=== PATIENT | female | born 1980 | race Caucasian/White ===

== ENCOUNTER 2022-05-11 21:08 | Emergency (ER) | payer OTHER, SELFPAY ==
[2022-05-11 21:12] VITALS: BP 156/98; PULSE 60; RESP 16; TEMP 36.4; O2SAT 99
--- NOTE | 2022-05-11 21:14 | ED.EYEPROB ---
HPI - Eye Problem General Chief complaint: Eye Problems Stated complaint: eye Time Seen by Provider: 05/11/22 21:10 History of Present Illness HPI Narrative: 41-year-old female history of seasonal allergies and depression presents to the emergency room for evaluation of left eye redness and associated pruritus. Patient states the eye became erythematous and pruritic earlier today. Denies any injury or trauma. Denies any vision changes or loss. Related Data Allergies Allergy/AdvReac Type Severity Reaction Status Date / Time cefaclor Allergy Unknown Rash Verified 06/06/21 16:35 Sulfa (Sulfonamide Allergy Unknown Rash Verified 06/06/21 16:35 Antibiotics) Review of Systems Review of Systems: CONSTITUTIONAL: Denies fever, chills, or sweats. EYES: Reports left eye irritation ENT: Denies rhinorrhea, congestion, sore throat, or otalgia. CARDIOVASCULAR: Denies chest pain, palpitations, or edema. RESPIRATORY: Denies cough or dyspnea. GASTROINTESTINAL: Denies abdominal pain, nausea, vomiting, or diarrhea. GENITOURINARY: Denies dysuria or hematuria. SKIN: Denies rash or itching. MUSCULOSKELETAL: Denies back pain, joint pain, or myalgia. NEUROLOGIC: Denies headache, numbness, dizziness, or weakness. PSYCHIATRIC: Denies anxiety or depression. [facility] Past Medical History Medical History (Updated 05/11/22 @ 21:33 by Hernan Garcia APRN) Abdominal pain Anxiety BMI 27.0-27.9,adult BMI 28.0-28.9,adult BMI 29.0-29.9,adult Headache disorder, condition Leukocytes in urine Lumbar spondylolysis Screening for lipid disorders Family History Family History Father Hypertension Grandparent Family history of Alzheimer's disease Mother Family history of malignant neoplasm of breast in first degree relative Social History Social History Alcohol intake: never Substance use: never Substance use type: does not use Additional living arrangements comments: 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 HEAD: Normocephalic, atraumatic. EYES: Left eye: Erythematous with chemosis and cobblestoning. No discharge noted. CHEST: Clear to auscultation. No respiratory distress. No wheezes rales or rhonchi. HEART: Regular rate and rhythm. No murmur heard. Normal peripheral pulses. EXTREMITIES: Normal range of motion. No edema. No clubbing or cyanosis SKIN: Warm, dry, no rash. No noted wounds NEURO: No focal deficits. Alert and oriented x3. MAEW. CN's II-XI intact bilaterally, normal gait PSYCH: Cooperative. Normal mood and affect. Course Vital Signs Vital signs: Vital Signs Temperature 36.4 C L 05/11/22 21:12 Pulse Rate 60 05/11/22 21:12 Respiratory Rate 16 05/11/22 21:12 Blood Pressure 156/98 H 05/11/22 21:12 Pulse Oximetry 99 05/11/22 21:12 Oxygen Delivery Room Air 05/11/22 21:12 Temperature 36.4 C L 05/11/22 21:12 Pulse Rate 60 05/11/22 21:12 Respiratory Rate 16 05/11/22 21:12 Blood Pressure 156/98 H 05/11/22 21:12 Pulse Oximetry 99 05/11/22 21:12 Oxygen Delivery Room Air 05/11/22 21:12 Discharge Plan Discharge Clinical Impression: Acute allergic conjunctivitis Patient Disposition: Home, Self-Care Condition: Stable Instructions: Antibiotic Form Additional Instructions: Recommend taking Benadryl for the itching. Follow-up with ophthalmology as needed. Prescriptions: New Allergy Eye (naphazoline-phen) 0.025-0.3 % drops 2 drp LEFT EYE QID PRN (Reason: allergy symptoms) Qty: 15 0RF No Action citalopram 40
== END 2022-05-11 21:45 | disposition home or self-care (01) ==
LOC: ANHED 21:33
PROVIDERS: Emergency Provider Nurse Practitioner Family; PCP Family Medicine
DX: H10.12 Acute atopic conjunctivitis, left eye (principal)
CPT/HCPCS: 99283

== ENCOUNTER → 2022-08-09 16:06 | Outpatient (CLI) | payer OTHER, SELFPAY ==
--- NOTE | ~2022-08-09 | XR_ITS ---
AP and oblique views of the bilateral ribs, and PA and lateral chest radiographs Clinical History: Pain Findings: No rib fracture is seen. Dextroscoliosis of the thoracic spine noted. Lungs are clear, with out focal consolidation or pleural effusion. Cardiomediastinal contour is within normal limits. Soft tissues are unremarkable. Impression: No rib fracture is seen. Clear lungs. Reviewed, dictated and finalized at location . Impression: No rib fracture is seen. Clear lungs.
== END ==
PROVIDERS: PCP Family Medicine; Visit Provider Nurse Practitioner Family
DX: R05.3 Chronic cough (principal)
CPT/HCPCS: 71046; 71110

== ENCOUNTER 2022-10-18 09:02 | Outpatient (CLI) | payer OTHER, SELFPAY ==
[2022-10-18 09:55] LABS: Amylase 71 U/L (30-110); Lipase 66 U/L (23-300)
== END 2022-10-18 09:03 | disposition home or self-care (01) ==
LOC: ANHLAB 09:03
PROVIDERS: PCP Family Medicine; Visit Provider Family Medicine
DX: R10.32 Left lower quadrant pain (principal)
CPT/HCPCS: 36415; 82150; 83690

== ENCOUNTER 2023-03-26 16:16 | Outpatient (CLI) | payer OTHER, SELFPAY ==
[2023-03-26 17:03] LABS: Hematocrit 37.4 % (37.0-47.0); Hemoglobin 11.9 g/dL (12.0-15.0); Mean Corpuscular HGB Conc 31.8 g/dl (32-36); Mean Corpuscular Hemoglobin 29.8 pg (26-34); Mean Corpuscular Volume 93.5 fl (80-100); Mean Platelet Volume 9.5 fl (7.4-10.4); Platelet Count Result 303 k/mm3 (150-375); Red Cell Distribution Width 11.8 % (11.5-14.5); White Blood Count 7.7 K/mm3 (4.5-10.0)
[2023-03-26 17:24] LABS: Alanine Aminotransferase 17 U/L (6-35); Albumin Level 4.5 g/dL (3.5-5.1); Alkaline Phosphatase 70 U/L (38-126); Anion Gap 5 mmol/L (8-16); Aspartate Amino Transferase 23 U/L (14-36); Bilirubin,Total 0.7 mg/dL (0.2-1.3); Blood Urea Nitrogen 12 mg/dL (7-17); Calcium 9.4 mg/dL (8.4-10.2); Carbon Dioxide 30 mmol/L (22-30); Chloride 101 mmol/L (98-107); Estimated Glomerular Filt Rate > 60; Glucose 93 mg/dL (65-110); Potassium 3.7 mmol/L (3.4-5.0); Sodium 136 mmol/L (137-145)
== END 2023-03-26 16:17 | disposition home or self-care (01) ==
LOC: ANHLAB 16:18
PROVIDERS: PCP Family Medicine; Visit Provider Family Medicine
DX: F41.9 Anxiety disorder, unspecified (principal); R10.30 Lower abdominal pain, unspecified; Z13.1 Encounter for screening for diabetes mellitus; R82.998 Other abnormal findings in urine
CPT/HCPCS: 36415; 80048; 80076; 84443; 85027

== ENCOUNTER 2023-04-03 15:09 | Outpatient (CLI) | payer OTHER, SELFPAY ==
--- NOTE | ~2023-04-03 | CT_ITS ---
CT of the Abdomen and Pelvis: Indication: Abdominal pain Technique: 2.5 mm axial scans were obtained through the abdomen and pelvis following intravenous adm inistration of 100 cc of Omnipaque 350. Dose reduction technique was used on this scan by utilizing a utomated exposure control and iterative reconstruction technique. The dose-length product (DLP) was 8 08.66 mGy-cm. Findings: Scans through the lung bases are unremarkable. The liver, spleen, pancreas, gallbladder, adrenals and kidneys are within normal limits. No evidence of aortic aneurysm. No lymphadenopathy. No bowel obstruction or bowel wall thickening. There is no evidence to suggest acute appendicitis. Sm all fat-containing umbilical hernia noted. Images through the pelvis were performed. Urinary bladder unremarkable. No significant adnexal mass s een. No ascites. Impression: Small fat-containing umbilical hernia, otherwise unremarkable exam. Reviewed, dictated and finalized at [facility]. NT ACQUISITION LEAD Impression: Small fat-containing umbilical hernia, otherwise unremarkable exam.
== END 2023-04-03 15:10 | disposition home or self-care (01) ==
PROVIDERS: PCP Family Medicine; Visit Provider Family Medicine
DX: K42.9 Umbilical hernia without obstruction or gangrene (principal)
CPT/HCPCS: 74177; Q9967

== ENCOUNTER 2023-07-03 08:23 | Outpatient (CLI) | payer OTHER, SELFPAY ==
[2023-07-03 09:14] LABS: Hematocrit 36.9 % (37.0-47.0); Hemoglobin 11.8 g/dL (12.0-15.0); Mean Corpuscular Hemoglobin 29.9 pg (26-34); Mean Corpuscular Volume 93.7 fl (80-100); Mean Platelet Volume 10.1 fl (7.4-10.4); Platelet Count Result 280 k/mm3 (150-375); Red Blood Count 3.94 M/mm3 (4.2-5.4); Red Cell Distribution Width 11.7 % (11.5-14.5); White Blood Count 4.2 K/mm3 (4.5-10.0)
[2023-07-03 09:33] LABS: Alanine Aminotransferase 14 U/L (6-35); Albumin Level 3.7 g/dL (3.5-5.1); Alkaline Phosphatase 50 U/L (38-126); Anion Gap 5 mmol/L (8-16); Aspartate Amino Transferase 22 U/L (14-36); Bilirubin,Total 0.3 mg/dL (0.2-1.3); Blood Urea Nitrogen 12 mg/dL (7-17); Calcium 8.9 mg/dL (8.4-10.2); Carbon Dioxide 26 mmol/L (22-30); Chloride 110 mmol/L (98-107); Estimated Glomerular Filt Rate > 60; Glucose 108 mg/dL (65-110); Sodium 141 mmol/L (137-145)
== END 2023-07-03 08:24 | disposition home or self-care (01) ==
LOC: ANHIMG 08:27
PROVIDERS: PCP Family Medicine; Visit Provider Nurse Practitioner Family
DX: F41.9 Anxiety disorder, unspecified (principal); R10.30 Lower abdominal pain, unspecified
CPT/HCPCS: 36415; 80053; 84443; 85027

== ENCOUNTER 2023-07-06 08:20 | Outpatient (CLI) | payer OTHER, SELFPAY ==
[2023-07-06 08:47] LABS: Anion Gap 6 mmol/L (8-16); Blood Urea Nitrogen 14 mg/dL (7-17); Calcium 9.2 mg/dL (8.4-10.2); Carbon Dioxide 28 mmol/L (22-30); Chloride 107 mmol/L (98-107); Estimated Glomerular Filt Rate > 60; Glucose 110 mg/dL (65-110); Potassium 4.2 mmol/L (3.4-5.0); Sodium 141 mmol/L (137-145)
[2023-07-06 09:06] LABS: Iron 68 ug/dL (37-170)
[2023-07-06 09:17] LABS: Percent Iron Saturation 24 % (20-50)
[2023-07-06 09:54] LABS: Folic Acid 6.4 ng/mL (2.76->20)
== END 2023-07-06 08:21 | disposition home or self-care (01) ==
LOC: ANHLAB 08:22
PROVIDERS: PCP Family Medicine; Visit Provider Nurse Practitioner Family
DX: N28.9 Disorder of kidney and ureter, unspecified (principal); D64.9 Anemia, unspecified
CPT/HCPCS: 36415; 80048; 82607; 82746; 83540; 83550

== ENCOUNTER 2023-07-09 14:09 | Emergency (ER) | payer OTHER, SELFPAY ==
--- NOTE | 2023-07-09 14:18 | ED.URI ---
HPI - URI/Sore Throat General Chief Complaint: Upper Respiratory Infection Stated Complaint: headache,sore throat Time Seen by Provider: 07/09/23 14:40 Source: patient and RN notes reviewed Mode of arrival: ambulatory Limitations: no limitations History of Present Illness HPI Narrative: 42-year-old female presents with concern for nasal congestion, rhinorrhea, headaches, sore throat for 4 days. Reports she has been taking Claritin-D, DayQuil NyQuil without relief. She reports body aches and fatigue, denies fever. 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 Reports fatigue EYES: Denies visual changes, redness, or discharge. ENT: Reports rhinorrhea, congestion, otalgia and sore throat. CARDIOVASCULAR: Denies chest pain, palpitations, or edema. RESPIRATORY: Reports cough. Denies dyspnea. GASTROINTESTINAL: Denies abdominal pain, nausea, vomiting, diarrhea SKIN: Denies rash or itching. MUSCULOSKELETAL: Reports myalgia. NEUROLOGIC: Reports headache. All systems reviewed & are unremarkable except as noted in HPI and below PMFSH Past Medical History Medical History Abdominal pain Anxiety BMI 27.0-27.9,adult BMI 28.0-28.9,adult BMI 29.0-29.9,adult BMI 30.0-30.9,adult Headache disorder, condition Left upper quadrant abdominal pain Leukocytes in urine Lower abdominal pain Lumbar spondylolysis Medial epicondylitis of right elbow Obesity, Class I, BMI 30-34.9 Screening for lipid disorders Surgical History Surgical History H/O nasal septoplasty Family History Family History Father Hypertension Heart disease Grandparent Family history of Alzheimer's disease Mother Family history of malignant neoplasm of breast in first degree relative Breast cancer Osteopenia Sibling Depression Other Anxiety Malignant neoplasm of prostate Social History Social History Smoking status: Never smoker Second hand tobacco smoke exposure: No Alcohol intake: current Alcohol use details: rarely Substance use: never Substance use type: does not use Lack of Transportation: No Lack of Food: Never True Current Housing: I Have Housing Concerned About Future Housing: No Difficulty Paying Gas/Electric Bills: No Difficulty Paying for Meds: No Currently Unemployed: No Education: Bachelor's Degree Difficulty w/ Childcare or Family Care: No Living arrangements: with family Additional living arrangements comments: & kids Occupation/Education: occupation 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 There is no relevant family history pertinent to the presenting complaint Exam Narrative: GENERAL: Well-appearing, well-nourished, and in no acute distress. HEAD: Normocephalic EYES: PERRLA, conjunctivae clear ENT: Nares clear, turbinates edematous and erythematous, clear discharge. Mucous membranes moist. TM pearly kapoor with dull light reflex bilaterally; no tragal tenderness. Oropharynx not erythematous without lesions. Tonsils not enlarged and without exudate, no d
[2023-07-09 14:23] VITALS: BP 131/81; PULSE 80; RESP 16; TEMP 37.2; O2SAT 100
== END 2023-07-09 14:59 | disposition home or self-care (01) ==
PROVIDERS: Emergency Provider Nurse Practitioner; PCP Family Medicine
DX: J06.9 Acute upper respiratory infection, unspecified (principal); Z20.822 Contact with and (suspected) exposure to COVID-19; E66.9 Obesity, unspecified; Z68.30 Body mass index [BMI] 30.0-30.9, adult
CPT/HCPCS: 87081; 87426; 87804; 87880; 99213; G0463

== ENCOUNTER 2023-08-13 10:48 | Outpatient (CLI) | payer OTHER, SELFPAY | END 2023-08-13 10:49 | disposition home or self-care (01) | LOC: ANHLAB 10:50 | PROVIDERS: PCP Family Medicine; Visit Provider Anesthesiology | DX: K42.9 Umbilical hernia without obstruction or gangrene (principal); Z01.818 Encounter for other preprocedural examination | CPT/HCPCS: 36415; 86850; 86900; 86901 ==

== ENCOUNTER 2023-08-14 01:04 | Day surgery (SDC) | payer OTHER, SELFPAY ==
--- NOTE | 2023-08-06 15:28 | PC.NURSE ---
Report to the Outpatient Waiting Room, entrance under the green pavilion located off [facility], at time 0600 on date 08/14/23. Planned Procedure Time: 0730. Time changes happen often and if your time is changed the preop area will call you the afternoon before. - You and your visitor will be asked to self-screen and do not enter if you have any COVID symptoms. - A mask is optional within the hospital at this time. Patients may have clear liquids (water, carbonated beverages, clear teas, apple juice) until 3 hours prior to surgery with a maximum of 20 ounces. 0430 - No food from midnight until time of surgery - Infants may have breast milk until 4 hours before surgery, formula 6 hours prior to surgery. - Children will be allowed to drink immediately following surgery. If applicable, please bring a bottle or sippy cup to assist with drinking. Juice, water, soda, and popsicles are readily available. For infants on formula, please bring formula the day of surgery. Pacifiers are allowed. Take the following medications with a SIP of water the morning of surgery: n/a DO NOT STOP ANY OF YOUR OTHER PRESCRIPTION MEDICATIONS PRIOR TO SURGERY ?EXCEPT THE FOLLOWING Medications to discontinue per physician none Date to take last dose Please no make-up, nail bengali, hairspray, perfume, deodorant, or body powder the day of surgery. No jewelry (including any body piercings) or valuables the day of surgery, leave them at home. Please take a shower or bath the night before, or the morning of, surgery with an antibacterial soap. Wear comfortable, loose fitting clothing. Children are encouraged to wear pajamas. - Jewelry must be removed prior to entering the operating room. Rings and piercings that are not removed may be cut off. - The hospital will not accept responsibility for valuables. - Please leave all valuables, including medications, at home the day of surgery. If you are going home after surgery, a licensed m48/m60 tank driver must drive you home. - NO public transportation without another adult if you receive anesthesia. - We recommend that an adult stay with you for 24 hours following discharge. - We also recommend that you do not drive, make important decision, drink alcoholic beverages, or take any drugs that were not prescribed by your health care provider for at least 24 hours after your discharge time. For Pediatric surgeries, we recommend two adults accompany the child home. Follow any additional instructions given to you from your surgeon. If you or anyone in your household have experienced Covid symptoms in the past week, please notify your surgeon or the nurse liaison at the phone number below for possible testing. Telephone instructions given to Patient- Annie Wilson and asked if any additional questions and then verbalized understanding. Patient advised to call surgeon office or pre surgery nurse liaison [phone] if any additional questions.
[2023-08-06 15:37] VITALS: BMI 29.0
[2023-08-14] VITALS (10 sets, daily range): BP systolic 102–117; BP diastolic 46–66; PULSE 47–62; RESP 10–16; TEMP 36.5–36.8; O2SAT 97–100
[2023-08-14] MEDS: ACETAMINOPHEN 500 MG TABLET 1000 MG PO (06:49)
[2023-08-14] MEDS: LACTATED RINGERS 1,000 ML 30 ML IV CONT ×2 (07:01→09:08)
--- NOTE | 2023-08-14 07:12 | WPDANESEPPF ---
Anes - Initial Pre Proc Eval Procedure: Operation Date: 08/14/23 07:30 Proposed Procedures p Laparoscopic Umbilical Hernia Repair with Mesh, Davinci Assisted - Sagar Hanna DO Date/Time: 08/14/23 07:12 Surgeon: Sagar Hanna DO Pre Op Diagnosis: Umbilical Hernia Patient Data Age: 42 Gender: F Height: 1.78 m Weight: 91.8 kg Allergies Allergy/AdvReac Type Severity Reaction Status Date / Time cefaclor Allergy Unknown Rash Verified 08/14/23 06:22 Sulfa (Sulfonamide Allergy Unknown Rash Verified 08/14/23 06:22 Antibiotics) Home Medications Medication Instructions Recorded Confirmed Type cetirizine 10 mg tablet (Zyrtec) 10 mg PO DAILY PRN allergies 08/14/23 08/14/23 History Patient hx anesthesia problems: none Family hx anesthesia problems: none Results Review: All pre-operative results and documents have been reviewed as part of the pre-operative evaluation. [facility] Past Medical History Medical History (Updated 08/01/23 @ 13:05 by Bela Vilchis PA-C) Abdominal pain Anxiety BMI 27.0-27.9,adult BMI 28.0-28.9,adult BMI 30.0-30.9,adult Headache disorder, condition Left upper quadrant abdominal pain Leukocytes in urine Lower abdominal pain Lumbar spondylolysis Medial epicondylitis of right elbow Obesity, Class I, BMI 30-34.9 Screening for lipid disorders Surgical History Surgical History H/O nasal septoplasty Family History Family History Father Hypertension Heart disease Grandparent Family history of Alzheimer's disease Mother Family history of malignant neoplasm of breast in first degree relative Breast cancer Osteopenia Sibling Depression Other Anxiety Malignant neoplasm of prostate Social History Social History Smoking status: Never smoker Second hand tobacco smoke exposure: No Alcohol intake: current Alcohol use details: rarely Substance use: never Substance use type: does not use Lack of Transportation: No Lack of Food: Never True Current Housing: I Have Housing Concerned About Future Housing: No Difficulty Paying Gas/Electric Bills: No Difficulty Paying for Meds: No Currently Unemployed: No Education: Bachelor's Degree Difficulty w/ Childcare or Family Care: No Living arrangements: with family Additional living arrangements comments: & kids Occupation/Education: occupation 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[employer] Gender identity (if verbalized by the patient): Female Sexual Orientation (if Verbalized by the Patient): Straight or Heterosexual Spiritual care concerns: No Agree to blood products: Yes Anes - Eval Final PreProcedure Day of Procedure 08/14/23 07:12 Patient weight: normal Heart: regular rate and rhythm Lungs: clear to auscultation Airway: Mallampati scale class II Neurological: alert and oriented Last oral intake: >/= 8 hours ASA classification: II Emergent: no Anesthetic plan: proceed Anesthesia type and monitoring: general ETT and standard monitoring Results Review: All pre-operative results and documents have been reviewed as part of the pre-operative evaluation. Informed Consent: The patient's anesthetic plan and its attendant risks and benefits were discussed with the patient/family/POA. Questions were solicited and answers provided to the satisfaction of the patient/family/POA.
--- NOTE | 2023-08-14 07:18 | WPDHPUPDATE1 ---
History and Physical Update Update Date/Time: 08/14/23 07:18 History and Physical has been reviewed, including an updated exam of the patient. There are NO changes in the patient's condition. Risks, benefits, and alternatives have been discussed and questions answered. Patient agrees to proceed with procedure.
--- NOTE | 2023-08-14 07:18 | PM.IMHP ---
H&P: HPI History of Present Illness Date/Time: 08/14/23 07:18 Chief Complaint: umbilical hernia Narrative: 42 yo woman presents for umbilical hernia repair. She reports no significant changes since last seen in office. Review of Systems Review of Systems: All systems reviewed & are unremarkable except as noted in HPI and below Constitutional: Constitutional: Denies chills, Denies fever(s), Denies headache(s) and Denies weight loss Eyes: Eyes: Denies change in vision ENT: Denies dizziness, Denies headache(s), Denies neck mass and Denies throat swelling Cardiovascular: Cardiovascular: Denies chest pain, Denies lightheadedness and Denies dyspnea Respiratory: Respiratory: Denies cough, Denies dyspnea and Denies wheezing Gastrointestinal: Gastrointestinal: Denies abdominal pain, Denies change in bowel habits, Denies nausea and Denies vomiting Genitourinary: Genitourinary: Denies hematuria and Denies dysuria Musculoskeletal: Musculoskeletal: Reports as per HPI Integumentary/Breasts: Skin/Breast: Reports as per HPI Neurologic: Denies dizziness and Denies headache(s) Allergic/Immunologic: Allergic/Immunologic: Denies throat swelling and Denies wheezing [facility] Past Medical History Medical History (Updated 08/01/23 @ 13:05 by Bela Vilchis PA-C) Abdominal pain Anxiety BMI 27.0-27.9,adult BMI 28.0-28.9,adult BMI 30.0-30.9,adult Headache disorder, condition Left upper quadrant abdominal pain Leukocytes in urine Lower abdominal pain Lumbar spondylolysis Medial epicondylitis of right elbow Obesity, Class I, BMI 30-34.9 Screening for lipid disorders Surgical History Surgical History H/O nasal septoplasty Family History Family History Father Hypertension Heart disease Grandparent Family history of Alzheimer's disease Mother Family history of malignant neoplasm of breast in first degree relative Breast cancer Osteopenia Sibling Depression Other Anxiety Malignant neoplasm of prostate Social History Social History Smoking status: Never smoker Second hand tobacco smoke exposure: No Alcohol intake: current Alcohol use details: rarely Substance use: never Substance use type: does not use Lack of Transportation: No Lack of Food: Never True Current Housing: I Have Housing Concerned About Future Housing: No Difficulty Paying Gas/Electric Bills: No Difficulty Paying for Meds: No Currently Unemployed: No Education: Bachelor's Degree Difficulty w/ Childcare or Family Care: No Living arrangements: with family Additional living arrangements comments: & kids Occupation/Education: occupation 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[employer] Gender identity (if verbalized by the patient): Female Sexual Orientation (if Verbalized by the Patient): Straight or Heterosexual Spiritual care concerns: No Agree to blood products: Yes Meds Home Medications and Allergies Home Medications Medication Instructions Recorded Confirmed Type cetirizine 10 mg tablet (Zyrtec) 10 mg PO DAILY PRN allergies 08/14/23 08/14/23 History Allergies Allergy/AdvReac Type Severity Reaction Status Date / Time cefaclor Allergy Unknown Rash Verified 08/14/23 06:22 Sulfa (Sulfonamide Allergy Unknown Rash Verified 08/14/23 06:22 Antibiotics) Exam Const: General: no acute distress and alert Orientation/consciousness: patient oriented x3 HENMT: Head: normocephalic and atraumatic Ears: hearing grossly normal bilaterally Face/Nose/Sinus: Normal nares present Mouth: Yes Normal oral and palatal mucosa present Eyes: Periorbital: periorbital findings normal Sclera: sclerae normal EOM: EOMs intact bilaterally Neck: Neck: normal visual inspection, no
[2023-08-14] MEDS: KETOROLAC 15 MG/ML VIAL (*BKC) IV PUSH (07:21)
[2023-08-14] MEDS: CLINDAMYCIN 900 MG/D5W 50 ML 900 MG/50 ML PIGGYBACK 50 MG IVPB (07:28)
[2023-08-14] MEDS: BUPIVACAINE/EPINEPHRINE 0.5% 30 ML VIAL INFILTRATE (07:48)
--- NOTE | 2023-08-14 09:09 | W.PM.PROC2 ---
Procedure Note - Detailed Date of Procedure 08/14/23 Pre-op Diagnosis Umbilical Hernia Post-op Diagnosis Same (3 cm umbilical hernia) Procedure Performed Laparoscopic 3 cm umbilical hernia repair with mesh, da Jeanmarie assisted Surgeon Sagar Hanna DO Anesthesia General and Local (0.5% bupivacaine with epinephrine) Indications This is a 42-year-old woman who presents with an umbilical hernia that has been causing intermittent abdominal pain for the past several years. She was found to have a 3 cm umbilical hernia on exam. A CT of her abdomen also confirmed the hernia. Discussions were made with the patient about treatment options and decision was made to proceed with robotic assisted laparoscopic umbilical hernia repair with mesh. Findings Laparoscopic 3 cm umbilical hernia repair was performed. The patient was found to have a 3 cm umbilical hernia and some mild diastasis of the rectus muscle just superior to it. A robotic intraperitoneal onlay mesh technique was used for repair. The hernia sac was excised and sent to the lab for pathology. I then also took down the falciform ligament far enough cephalad to allow for repair and mesh placement. The Stratafix suture was run from about 5 cm cephalad to the hernia all the way to just inferior to the hernia. I then placed a 15 cm x [address] mesh and secured it to the abdominal wall circumferentially. No other intra-abdominal abnormalities were noted. Description of Procedure Procedure as well as risks, benefits, and alternatives were discussed with the patient. Written consent was obtained and placed in chart prior to procedure. Patient was brought back to surgical suite. She was placed supine on operating table. Time-out was done to confirm patient and procedure. She was then intubated by the anesthesia department. A bump was placed under her left hip, and the bed was flexed slightly to extend the space between her costal margin and iliac crest. Her abdomen was prepped and draped in sterile fashion using chlorhexidine prep. A 5 millimeter incision was made in the left upper quadrant, and a 5 millimeter Optiview trocar was advanced through the abdominal layers under direct visualization. Once inside the abdominal cavity, carbon dioxide insufflation was used to create a pneumoperitoneum. Her abdomen was inspected. An 8 millimeter incision was made in the left lower quadrant, and an 8 millimeter robotic trocar was placed under direct visualization. Another 8 millimeter incision was made in the left lateral abdomen, and an 8 millimeter robotic trocar was placed under direct visualization. 0.5% bupivacaine with epinephrine was infiltrated around each port site. The 5 millimeter port was removed, and an 8 mm robotic trocar was placed under direct visualization. The robotic arms were brought up to the patient's bedside and secured to the ports. The camera and instruments were inserted, and I then moved over to the robotic console and took control of the camera and instruments. After careful thorough inspection of the abdominal cavity, I began my dissection at the hernia. The hernia sac and preperitoneal fat was excised using scissors with electrocautery. The falciform ligament was also taken down for several cm cephalad using scissors with electrocautery. I then measured the hernia size. The hernia measured 3 cm. The fascia was closed using an 0-Stratafix running suture in a vertical fashion. A Ventralight ST 15 cm x 10 cm mesh was then placed within the abdominal cavity. This was oriented vertically with the mesh centered on the hernia defect. The mesh was then secured at the center and 4 corners using 3-0 Vicryl simple interrupted sutures. The circumference of the mesh was then secured to the abdominal wall using 2-0 Stratafix running absorbable suture. The repair was inspected, and one final inspection was made around the abdominal cavity. The robotic instruments were then removed, an
[2023-08-14] MEDS: fentaNYL CITRATE INJ (*CRX) 100 MCG/2 ML VIAL 25 MCG IV PUSH ×3 (09:51→10:21)
[2023-08-14] MEDS: oxyCODONE HCL (*CRX) 5 MG TAB IR PO (10:21)
== END 2023-08-14 11:25 | disposition home or self-care (01) ==
PROVIDERS: PCP Family Medicine; Visit Provider Surgery
PROC: (CPT 49593; principal; 2023-08-14 07:30)
DX: K42.9 Umbilical hernia without obstruction or gangrene (principal); F41.9 Anxiety disorder, unspecified; Z98.890 Other specified postprocedural states; Z80.3 Family history of malignant neoplasm of breast; Z80.42 Family history of malignant neoplasm of prostate; Z82.49 Family history of ischemic heart disease and other diseases of the circulatory system
CPT/HCPCS: 49593; S2900; 36415; 86850; 86900; 86901; 88302; A9270; C1781; J1100; J1170; J1885; J2250; J2405; J2704; J3010; J7030; J7120

== ENCOUNTER 2023-12-06 15:16 | Outpatient (CLI) | payer OTHER, SELFPAY ==
--- NOTE | ~2023-12-06 | MM_ITS ---
EXAMINATION: MM screening louise BI w riley HISTORY: Screening TECHNIQUE: Craniocaudal and mediolateral oblique 3-D tomosynthesis images were obtained and synthetic 2-D images were generated. CAD analysis was submitted and interpreted. COMPARISON: No prior mammogram is available for comparison at this institution. BREAST PARENCHYMAL COMPOSITION: Dense: The breasts are extremely dense, which lowers the sensitivity of mammography. FINDINGS: There are regional asymmetries centered in the upper outer quadrant of the right breast. Th ere is no evidence of suspicious mass, calcification, or architectural distortion to suggest malignan cy in either breast. There has been no suspicious interval change. IMPRESSION: 1. Right breast asymmetries. 2. Additional mammographic views and possible breast ultrasound are recommended. BI-RADS Category 0: Incomplete: Needs additional imaging evaluation. Reviewed, dictated and finalized at location B. IMPRESSION: 1. Right breast asymmetries. 2. Additional mammographic views and possible breast ultrasound are recommended . BI-RADS Category 0: Incomplete: Needs additional imaging evaluation.
== END 2023-12-06 15:17 | disposition home or self-care (01) ==
LOC: ANHIMG 15:16
PROVIDERS: PCP Family Medicine; Visit Provider Obstetrics & Gynecology
DX: Z12.31 Encounter for screening mammogram for malignant neoplasm of breast (principal); N64.89 Other specified disorders of breast
CPT/HCPCS: 77063; 77067

== ENCOUNTER 2023-12-17 11:11 | Emergency (ER) | payer OTHER, SELFPAY ==
--- NOTE | 2023-12-17 11:13 | ED.URI ---
HPI - URI/Sore Throat General Chief Complaint: Ear Stated Complaint: Sore Throat/Ear Irritation/Dizziness Time Seen by Provider: 12/17/23 11:18 Source: patient and RN notes reviewed Mode of arrival: ambulatory Limitations: no limitations History of Present Illness HPI Narrative: 43-year-old female presents with concern for sore throat, ear pain, dizziness. Reports the dizziness started after she went snorkeling on vacation, reports she may have dove down to deep. Reports she went to the emergency room where they did workup and diagnosed her with vertigo. She reports they did not look in her ears or throat. She denies nasal congestion, rhinorrhea. Denies fever, body aches, chills, sweats. Denies drainage from the ear. She has been taking meclizine MD elicited complaint: sore throat and other (ear pain, dizziness) Related Data Home Medications Medication Instructions Recorded Confirmed cetirizine 10 mg tablet (Zyrtec) 10 mg PO DAILY PRN allergies 08/14/23 12/17/23 meclizine 25 mg tablet 25 mg PO DAILY 12/17/23 12/17/23 Allergies Allergy/AdvReac Type Severity Reaction Status Date / Time cefaclor Allergy Unknown Rash Verified 12/17/23 11:33 Sulfa (Sulfonamide Allergy Unknown Rash Verified 12/17/23 11:33 Antibiotics) Cephalosporins Allergy Unknown Verified 12/17/23 11:33 Review of Systems Review of Systems: CONSTITUTIONAL: Denies malaise, chills, sweats, or fever. EYES: Denies visual changes, redness, or discharge. ENT: Denies rhinorrhea, congestion, sinus pain. Reports otalgia and sore throat. CARDIOVASCULAR: Denies chest pain, palpitations, or edema. RESPIRATORY: Denies cough. Denies dyspnea. GASTROINTESTINAL: Denies abdominal pain, nausea, vomiting, diarrhea SKIN: Denies rash or itching. MUSCULOSKELETAL: Denies myalgia. NEUROLOGIC: Denies headache. Reports dizziness All systems reviewed & are unremarkable except as noted in HPI and below PMFSH Past Medical History Medical History (Updated 12/17/23 @ 11:47 by Tia Guzman NP) Abdominal pain Anxiety BMI 27.0-27.9,adult BMI 28.0-28.9,adult BMI 30.0-30.9,adult Headache disorder, condition Left upper quadrant abdominal pain Leukocytes in urine Lower abdominal pain Lumbar spondylolysis Medial epicondylitis of right elbow Obesity, Class I, BMI 30-34.9 Screening for lipid disorders Surgical History Surgical History (Updated 08/24/23 @ 08:37 by Yana Washington CMA) H/O nasal septoplasty History of umbilical hernia repair Laparoscopic 3 cm umbilical hernia repair with mesh, da Jeanmarie assisted 08/14/23 Family History Family History Father Hypertension Heart disease Grandparent Family history of Alzheimer's disease Mother Family history of malignant neoplasm of breast in first degree relative Breast cancer Osteopenia Sibling Depression Other Anxiety Malignant neoplasm of prostate Social History Social History Smoking status: Never smoker Second hand tobacco smoke exposure: No Alcohol intake: current Alcohol use details: rarely Substance use: never Substance use type: does not use Lack of Transportation: No Lack of Food: Never True Current Housing: I Have Housing Concerned About Future Housing: No Difficulty Paying Gas/Electric Bills: No Difficulty Paying for Meds: No Currently Unemployed: No Education: Bachelor's Degree Difficulty w/ Childcare or Family Care: No Living arrangements: with family Additional living arrangements comments: & kids Occupation/Education: occupation 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
[2023-12-17 11:24] VITALS: BP 130/79; PULSE 79; RESP 16; TEMP 36.8; O2SAT 100
== END 2023-12-17 11:50 | disposition home or self-care (01) ==
PROVIDERS: Emergency Provider Nurse Practitioner; PCP Family Medicine
DX: R42 Dizziness and giddiness (principal); M47.816 Spondylosis without myelopathy or radiculopathy, lumbar region; E66.9 Obesity, unspecified; Z68.27 Body mass index [BMI] 27.0-27.9, adult
CPT/HCPCS: 87081; 99213; G0463

== ENCOUNTER 2024-01-01 16:12 | Outpatient (CLI) | payer OTHER, SELFPAY ==
[2024-01-01 16:31] LABS: Basophils Percent Auto 0.5 % (0.2-1.2); Eosinophils Absolute Auto 0.2 K/mm3 (0-0.3); Eosinophils Percent Auto 3.1 % (0-4.4); Hematocrit 36.6 % (37.0-47.0); Hemoglobin 12.1 g/dL (12.0-15.0); Immature Granulocyte Absolute 0.03 K/mm3 (0.00-0.031); Immature Granulocyte Percent A 0.5 % (0-0.5); Lymphocytes Absolute Auto 2.03 K/mm3 (0.9-3.2); Lymphocytes Percent Auto 31.5 % (18.3-44.2); Mean Corpuscular HGB Conc 33.1 g/dl (32-36); Mean Corpuscular Hemoglobin 30.6 pg (26-34); Mean Corpuscular Volume 92.4 fl (80-100); Mean Platelet Volume 9.5 fl (7.4-10.4); Monocytes Absolute Auto 0.3 K/mm3 (0.1-0.6); Monocytes Percent Auto 4.2 % (2.6-8.5); Neutrophils Absolute Auto 3.9 K/mm3 (1.3-6.7); Neutrophils Percent Auto 60.2 % (45.5-73.1); Platelet Count Result 271 k/mm3 (150-375); Red Blood Count 3.96 M/mm3 (4.2-5.4); Red Cell Distribution Width 11.9 % (11.5-14.5); White Blood Count 6.4 K/mm3 (4.5-10.0)
[2024-01-01 16:45] LABS: Alanine Aminotransferase 14 U/L (6-35); Albumin Level 4.3 g/dL (3.5-5.1); Alkaline Phosphatase 57 U/L (38-126); Amylase 64 U/L (30-110); Anion Gap 8 mmol/L (4-12); Aspartate Amino Transferase 21 U/L (14-36); Bilirubin,Total 0.5 mg/dL (0.2-1.3); Blood Urea Nitrogen 12 mg/dL (7-17); Calcium 8.9 mg/dL (8.4-10.2); Carbon Dioxide 26 mmol/L (22-30); Chloride 102 mmol/L (98-107); Estimated Glomerular Filt Rate > 60; Glucose 93 mg/dL (65-110); Lipase 71 U/L (23-300); Potassium 3.8 mmol/L (3.4-5.0); Sodium 136 mmol/L (137-145)
[2024-01-03 02:03] LABS: CA-125 12 U/mL (<35)
[2024-01-03 04:00] LABS: CA 19-9 <3 U/mL (<34)
== END 2024-01-01 16:13 | disposition home or self-care (01) ==
LOC: ANHLAB 16:14
PROVIDERS: PCP Family Medicine; Visit Provider Family Medicine
DX: R10.84 Generalized abdominal pain (principal)
CPT/HCPCS: 36415; 80053; 82150; 83690; 85025; 86301; 86304

== ENCOUNTER 2024-01-23 11:49 | Outpatient (CLI) | payer OTHER, SELFPAY ==
--- NOTE | ~2024-01-23 | MMUS_ITS ---
EXAMINATION: MM diagnostic louise RT w riley, US breast RT complete HISTORY: Follow-up right breast asymmetries TECHNIQUE: Additional 3-D tomosynthesis images of the right breast were performed and synthetic 2-D i mages were generated. CAD analysis was submitted and interpreted. High resolution complete right dianne st ultrasound was performed. COMPARISON: 12/06/2023 BREAST PARENCHYMAL COMPOSITION: Dense: The breasts are extremely dense, which lowers the sensitivity of mammography. FINDINGS: MAMMOGRAPHIC FINDINGS: There are no suspicious masses, calcifications or architectural distortion in the right breast to sug gest malignancy. ULTRASOUND: Complete US of all 4 quadrants of the right breast/s and retroareolar region was reviewed. Normal het erogeneous echotexture without focal solid or cystic mass. IMPRESSION: 1. No evidence for malignancy in the right breast. 2. Routine yearly screening mammogram and regular clinical breast examination are recommended. BI-RADS Category 1: Negative Reviewed, dictated and finalized at location B. IMPRESSION: 1. No evidence for malignancy in the right breast. 2. Routine yearly screening mammogram and regular clinical breast examination a re recommended. BI-RADS Category 1: Negative
== END 2024-01-23 11:50 | disposition home or self-care (01) ==
LOC: ANHIMG 11:50
PROVIDERS: PCP Family Medicine; Visit Provider Obstetrics & Gynecology
DX: N64.89 Other specified disorders of breast (principal)
CPT/HCPCS: 76641; 77061; 77065; G0279

== ENCOUNTER 2024-04-20 16:20 | Emergency (ER) | payer OTHER, SELFPAY ==
--- NOTE | ~2024-04-20 | XR_ITS ---
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 RESULT: Lines, tubes, and devices: None. Lungs and pleura: Clear. Cardiomediastinal silhouette: Stable. Other: No acute osseous or upper abdominal finding. Severe scoliosis. IMPRESSION: No acute cardiopulmonary process. Reviewed, dictated and finalized at location K. AZZO INSTALLER
[2024-04-20 16:33] VITALS: BP 114/86; PULSE 87; RESP 16; TEMP 36.2; O2SAT 96
--- NOTE | 2024-04-20 16:44 | ED.URI ---
HPI - URI/Sore Throat General Chief Complaint: Upper Respiratory Infection Stated Complaint: cough Time Seen by Provider: 04/20/24 16:44 Source: patient Mode of arrival: ambulatory Limitations: no limitations History of Present Illness HPI Narrative: 43-year-old female presents with complaint of intermittent sinus congestion, sinus pressure, Postnasal drainage for the past month. Reports she has been also off and on coughing for the past month. takes allergy medications daily. Afebrile. Over the last several days cough has been worse with wheezing and shortness of breath. Feels tight chest, cannot take full breath. No respiratory distress. All systems reviewed and negative except as noted above. Related Data Home Medications Medication Instructions Recorded Confirmed cetirizine 10 mg tablet (Zyrtec) 10 mg PO DAILY PRN allergies 08/14/23 01/01/24 Allergies Allergy/AdvReac Type Severity Reaction Status Date / Time cefaclor Allergy Unknown Rash Verified 01/01/24 15:11 Sulfa (Sulfonamide Allergy Unknown Rash Verified 01/01/24 15:11 Antibiotics) Cephalosporins Allergy Unknown Verified 01/01/24 15:11 Review of Systems Review of Systems: CONSTITUTIONAL: Denies fever, chills, or sweats. EYES: Denies visual changes, redness, or discharge. ENT: reports rhinorrhea, congestion. Denies sore throat, or otalgia. CARDIOVASCULAR: Denies chest pain, palpitations, or edema. RESPIRATORY: Reports cough and dyspnea with exertion. GASTROINTESTINAL: Denies abdominal pain, nausea, vomiting, or diarrhea. GENITOURINARY: Denies dysuria or hematuria. SKIN: Denies rash or itching. MUSCULOSKELETAL: Denies back pain, joint pain, or myalgia. NEUROLOGIC: Denies headache, numbness, or weakness. PSYCHIATRIC: Denies anxiety or depression. All other systems reviewed are negative, except as documented in HPI. [facility] Past Medical History Medical History Abdominal pain Anxiety Breast asymmetry Headache disorder, condition Left upper quadrant abdominal pain Leukocytes in urine Lower abdominal pain Lumbar spondylolysis Medial epicondylitis of right elbow Obesity, Class I, BMI 30-34.9 Screening for lipid disorders Vertigo Surgical History Surgical History H/O nasal septoplasty History of umbilical hernia repair Laparoscopic 3 cm umbilical hernia repair with mesh, da Jeanmarie assisted 08/14/23 Family History Family History Father Hypertension Heart disease Grandparent Family history of Alzheimer's disease Mother Family history of malignant neoplasm of breast in first degree relative Breast cancer Osteopenia Sibling Depression Other Anxiety Malignant neoplasm of prostate Social History Social History Smoking status: Never smoker Second hand tobacco smoke exposure: No Alcohol intake: current Alcohol use details: rarely Substance use: never Substance use type: does not use Lack of Transportation: No Lack of Food: Never True Current Housing: I Have Housing Concerned About Future Housing: No Difficulty Paying Gas/Electric Bills: No Difficulty Paying for Meds: No Currently Unemployed: No Education: Bachelor's Degree Difficulty w/ Childcare or Family Care: No Living arrangements: with family Additional living arrangements comments: & kids Occupation/Education: occupation 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 There is no relevant family history pertinent to the presenting complaint. Exam Narrative: GENERAL: This is a well-nourished, well-developed patient, in no apparent distress. HEAD: normocephalic, atraumatic. EYES: PERRL. Sclera clear/white. Vision is grossly intact. EARS: External ears normal, auditory canals clear and without drainage, TMs normal without perforation. Hearing grossly intact. NOSE: External nose normal with congestion, erythema and swelling to bilateral nares, maxillary sinus tenderness on exam THROAT: Mucous membranes moist, mild erythema, PND NECK: Neck supple, non-tender without lymphadenopathy, masses or thyromegaly. CARDIOVASCULAR: Regular rate and rhythm without murmurs, gallops, or rubs. RESPIRATORY: wheezing, tight throughout all lung capps. Breath sounds equal bilaterally. Nowheezes, rales, or rhonchi. SKIN: warm, Dry, intact with no suspicious lesions or rash, good texture and turgor. NEURO: awake, alert, and oriented to person, place and time. There were no obvious focal neurologic abnormalities. EXTREMITIES: No joint tenderness, effusion, or edema noted. Course Course Level of Care: Express Care Visit Reevaluation(s) Reevaluation #1: Patient reports improvement in shortness of breath, chest tightness after albuterol nebulization Vital Signs Vital signs: Vital Signs Temperature 36.2 C L 04/20/24 16:33 Pulse Rate 87 04/20/24 16:33 Respiratory Rate 16 04/20/24 16:33 Blood Pressure 114/86 04/20/24 16:33 Pulse Oximetry 96 04/20/24 16:33 Oxygen Delivery Room Air 04/20/24 16:33 Temperature 36.2 C L 04/20/24 16:33 Pulse Rate 87 04/20/24 16:33 Respiratory Rate 16 04/20/24 16:33 Blood Pressure 114/86 04/20/24 16:33 Pulse Oximetry 96 04/20/24 16:33 Oxygen Delivery Room Air 04/20/24 16:33 reviewed MDM - URI/Sore Throat MDM Narrative Medical decision making narrative: Patient is aware of diagnosis, understands and agrees to treatment plan. Anticipatory guidance given. Patient agrees to follow-up as directed and is aware of reasons to seek care at the emergency department. Portions of this record may have been created with voice recognition software discussed checks x-ray results with patient. Will treat patient with antibiotic due to duration of symptoms exam signs. Will treat bronchitis with prednisone, albuterol inhaler. 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 RESULT: Lines, tubes, and devices: None. Lungs and pleura: Clear. Cardiomediastinal silhouette: Stable. Other: No acute osseous or upper abdominal finding. Severe scoliosis. IMPRESSION: No acute cardiopulmonary process. Discharge Plan Discharge Clinical Impression: Acute bacterial sinusitis, Acute bronchitis Patient Disposition: Home, Self-Care Condition: Stable Instructions: Antibiotic Form, Sinusitis (ED) Additional Instructions: your chest x-ray was normal today. Take medications as prescribed. Drink at least 64 oz of water a day. Follow-up with your primary care physician at next available appointment. Prescriptions: New doxycycline hyclate 100 mg capsule 100 mg PO BID 7 Days Qty: 14 0RF benzonatate 200 mg capsule 200 mg PO TID PRN (Reason: cough) Qty: 20 0RF prednisone 20 mg tablet 40 mg PO DAILY 5 Days Qty: 10 0RF albuterol sulfate 90 mcg/actuation HFA aerosol inhaler 2 puff inhalation Q4-6H PRN (Reason: shortness of breath or wheezing) Qty: 8.5 0RF (DME) Aerochamber Plus Z Stat Spacer See Rx Instructions .Route Qty: 1 0RF Rx Instructions: As directed No Action amitriptyline 25 mg tablet 25 mg PO QHS Qty: 30 0RF cetirizine [Zyrtec] 10 mg Tablet 10 mg PO DAILY PRN (Reason: allergies) Follow-up/Referrals: Ced Huff MD [Primary Care Provider] - 1 Week Time of Disposition: 17:16
[2024-04-20] MEDS: ALBUTEROL SULFATE NEB 2.5 MG/3 ML INH INHALATION (17:00)
[2024-04-20 17:12] VITALS: PULSE 92; RESP 18; O2SAT 99
== END 2024-04-20 17:18 | disposition home or self-care (01) ==
PROVIDERS: Emergency Provider Nurse Practitioner Family; PCP Family Medicine
DX: J01.90 Acute sinusitis, unspecified (principal); J20.9 Acute bronchitis, unspecified; M47.816 Spondylosis without myelopathy or radiculopathy, lumbar region; E66.9 Obesity, unspecified; Z68.27 Body mass index [BMI] 27.0-27.9, adult
CPT/HCPCS: 71046; 94640; 99213; G0463

== ENCOUNTER 2024-11-24 16:15 | Outpatient (CLI) | payer OTHER, SELFPAY ==
--- NOTE | ~2024-11-24 | XR_ITS ---
Cervical Spine: AP, lateral, oblique, open-mouth views Clinical History: Pain Findings: There is mild reversal normal cervical lordosis. The vertebral bodies and posterior elemen ts appear intact. No instability evident on flexion or extension. There is mild facet arthropathy low er cervical spine. The intervertebral disc spaces are well maintained. There is probable bilateral ne ural foraminal narrowing at C6-C7. Pre-vertebral soft tissues are unremarkable. Impression: Bilateral neural foraminal narrowing at C6-C7. Mild reversal of the normal cervical lordosis. Reviewed, dictated and finalized at [facility]. Impression: Bilateral neural foraminal narrowing at C6-C7. Mild reversal of the normal cervical lordosis.
--- NOTE | ~2024-11-24 | XR_ITS ---
Lumbosacral Spine: AP and lateral views Clinical History: Pain Findings: There is levoscoliosis, apex at L2. No fracture or subluxation evident otherwise. There is moderate to advanced facet arthropathy throughout the lumbar spine. No instability evident on flexion or extension. The sacroiliac joints are normally outlined. Impression: Levoscoliosis with moderate to advanced facet arthropathy in the lumbar spine. Reviewed, dictated and finalized at location . Impression: Levoscoliosis with moderate to advanced facet arthropathy in the lumbar spine.
== END 2024-11-24 16:16 | disposition home or self-care (01) ==
LOC: MICIMG 16:17
PROVIDERS: PCP Family Medicine; Visit Provider Chiropractor
DX: M54.2 Cervicalgia (principal); M54.50 Low back pain, unspecified
CPT/HCPCS: 72052; 72110